=== PATIENT | female | born 1960 | race Caucasian/White ===

== ENCOUNTER 2024-05-07 17:45 | Inpatient (IN) | payer BC, SELFPAY ==
[2024-05-07] VITALS (9 sets, daily range): BP systolic 128–148; BP diastolic 78–89; PULSE 85–107; RESP 20–24; TEMP 36.3–36.9; O2SAT 86–95; BMI 32.6
--- NOTE | 2024-05-07 17:48 | PM.IMHP1 ---
Hospitalist- H&P: HPI History of Present Illness Date Seen: 05/07/24 Chief complaint: Direct Admit Narrative: ADMISSION HISTORY AND PHYSICAL - HOSPITALIST Chief Complaint: HPI: Patient is a 63-year-old female with a history of obesity and hyperlipidemia. She takes no daily medications. She has had symptoms of an upper respiratory infection for about 2 weeks. She had plan to cruise in the [facility] and did not want to miss the trip. So she went on the trip even though she felt quite ill. She felt worse upon return. She presented ambulatory this morning to the [place] ED. She was tachypneic, hypoxic, tachycardic and febrile. Initial workup revealed hypoxic respiratory failure with a patchy left lower lobe airspace opacity c/w CAP noted on two view chest x-ray. She was requiring 4L per NC oxygen to keep sats >90%. No history of smoking or chronic lung disease. She was started on broad-spectrum antibiotics including IV azithromycin and IV cefepime. She was given oral prednisone and multiple DuoNebs. With no bed availability in the [facility] was contacted for direct admission. ER COURSE: as above, IV antibiotics, labs, swabs, CXR. Nebs. CODE STATUS: FULL CODE EMERGENCY CONTACT PLAN: I've updated the PFSH, medications and allergies in the Expanse tabs. INVESTIGATIONS: LABS/MICRO/ECG/IMAGING CBC on 05/07/2024 at 10 30 Normal white blood cell count at 9.6 Hemoglobin 12.6 Platelets 297 BMP shows a mild hypokalemia, 3.5. Otherwise normal renal function the normal electrolytes. Glucose 112. Her lactate was negative Influenza and SARs CoV V2 negative RSV negative Last set of vitals in the [place] [facility] showed a blood pressure of 124/75, pulse 101, temperature 100.4?, respiratory rate 26, O2 sats 92% on 3 L, 83 kilos, BMI 30 through Chest x-ray done in the [place] [facility] Imaging Results - DX Chest AP or PA and Lateral 2 Views (05/07/2024 10:22 AM CDT) Impressions 05/07/2024 10:26 AM CDT Mid to lower pulmonary interstitial prominence with patchy left lower lobe airspace opacity consistent with pneumonia. Normal heart size. Spondylosis. REVIEW OF SYSTEMS: 12-point ROS completed with patient and negative unless otherwise stated in HPI or below. PHYSICAL EXAM: CONSTITUTIONAL: Conversive, good historian. A/O. Knows setting and context. GENERAL: Well-developed and above ideal body weight, in mild to moderate respiratory distress. VITAL SIGNS: see record. HEENT: Sclerae are anicteric. No petechiae. CARDIAC: rhythm is regular. There is no S3 or rub. No harsh murmurs. Extremities show trace edema with symmetrical pulses. PULM: coarse breath sounds; intermittent expiratory wheeze. hoarse voice, coughing between sentences and with any deep inspiration. On 1Liter NCO2. NEURO: Speech is fluent. A brief neurologic exam is negative. SKIN: No rashes, petechiae, concerning changes PSYCHIATRIC: Euthymic. ADMIT TO MEDSURG: FLOOR CARE DVT: Lovenox GI: PO intake Time spent: Today I spent 75 minutes seeing the patient, discussing the patient with ER staff, reviewing Expanse and EPIC notes/diagnostics, discussing the care plan with our care time that includes social work, PT/OT, pharmacy, RT, jail and documenting my impressions and plan in the medical record. MEDICAL NECESSITY FOR HOSPITALIZATION Anticipated midnights in the hospital: 2 Admitting diagnosis: hypoxic respiratory failure secondary to community-acquired pneumonia Risk of morbidity and mortality: Moderate Acuity is characterized as high and reflected in: Age greater than 60, oxygen dependent This patient will require hospital services as outlined in the assessment and plan in order to stabilize and be safely discharged to a lower level of care. Because of the risk and acuity as described above, this patient cannot be managed at a lower level of care. LENGTH OF STAY: 2 IP ? Anticipated LOS>2 midnights due to acuity of clinical presentation requiring inpatient level of care [facility] Medical History (Updated 05/10/24 @ 12:34 by Janell Isaac MD) Central obesity ?E65 - Localized adiposity (ICD-10) Hyperlipidemia ?E78.5 - Hyperlipidemia, unspecified (ICD-10) Deafness in left ear ?H91.92 - Unspecified hearing loss, left ear (ICD-10) Ulnar nerve entrapment at elbow ?G56.20 - Lesion of ulnar nerve, unspecified upper limb (ICD-10) History of acoustic neuroma ?Z86.018 - Personal history of other benign neoplasm (ICD-10) History of breast cancer ?Z85.3 - Personal history of malignant neoplasm of breast (ICD-10) Surgical History (Updated 05/07/24 @ 18:51 by Sue Varela MD) S/P ORIF (open reduction internal fixation) fracture ?Z98.890 - Other specified postprocedural states (ICD-10) ?Z87.81 - Personal history of (healed) traumatic fracture (ICD-10) History of bladder surgery ?Z98.890 - Other specified postprocedural states (ICD-10) Hx of mastectomy ?Z90.10 - Acquired absence of unspecified breast and nipple (ICD-10) History of cataract surgery ?Z98.49 - Cataract extraction status, unspecified eye (ICD-10) Social History What is your current living situation?: I presently have a place to live Problems where you live: no known problems Problems where you live details: na In the past 12 months, utilities in danger of being shut off: no In past 12 months, lack of transportation kept you from medical appts, meetings, work, or getting things needed for daily living: no In the past 12 mos, have been you worried that your food would run out before you had money to buy more?: never true In the past 12 mos, the food you bought just didn't last and you didn't have money to buy more?: never true Smoking Status: Never smoker Do you use any of these nicotine containing products: None Second hand tobacco smoke exposure: No How often do you have a drink containing alcohol: never How often do you have six or more drinks on one occasion: Never AUDIT-C Alcohol total score: 0 Non-prescribed substance use: denies use How often does anyone, including family, friends and others, physically hurt you: never How often does anyone, including family, friends and others, insult or talk down to you: never How often does anyone, including family, friends and others, threaten you with harm: never How often does anyone, including family, friends and others, scream or curse at you: never Meds Home Medications and Allergies Allergies Allergy/AdvReac Type Severity Reaction Status Date / Time No Known Drug Allergies Allergy Verified 05/07/24 18:52 Assessment and Plan Assessment and plan (1) Community acquired pneumonia: Problem comment: - per above, stable for d/c home on full course of Doxycycline 05/10/24 Status: Acute (2) Hypoxic respiratory failure: Problem comment: - admitted 05/07 with oxygen requirements between 1-3L to maintain sats > 90% - PNA on admission CXR - treated with Doxycycline, Rocephin to cover CAP; vibratory PEEP, incentive spirometry, nebs, HFNC for humidification, followed by RT - stable on RA 05/10/24 and appropriate for d/c home Status: Acute (3) Central obesity: Problem comment: 83Kg, BMI 32.5 Status: Chronic (4) Deafness in left ear: Status: Chronic (5) Hyperlipidemia: Problem comment: - not on medication for this, outpatient f/u Status: Chronic
[2024-05-07] MEDS: IPRAT-ALBUT 0.5-2.5 MG/3 ML NEB 1 NEB IH ×2 (19:17→23:28)
[2024-05-07] MEDS: cefTRIAXone 1 GM in 0.9 % SODIUM CHLORIDE Mini-bag 100 ML IVPB (19:17)
--- NOTE | 2024-05-07 19:54 | PC.NURSE ---
End of shift [id number] - Pt arrived from [place] ED via direct transfer at approximately 1650. Alert, oriented, cooperative and pleasant. Up with standby assistance. Noticeably SOB at rest, with exertion, and while speaking. Noted to desaturate to 88% without O2 support while speaking. Denies pain, chest pain, dizziness. Family at bedside. Tolerating O2 via nasal cannula at 1L to maintain saturation above 90% per MD order. Appears to be resting comfortably at end of shift with call light within reach.
--- NOTE | 2024-05-07 20:17 | RESP.RT ---
Patient initial SAT of 88% on room air. Placed on 1L NC to keep SATs at 90% and initiate Aerobika as patient states that she has been coughing up large amounts of mucus over the past 2 days. After deep breathing, Aerobika, and coughing the patient is SATing 92% on room air. PRN nebs for wheezing and continue working with Aerobika to clear mucus. Hold Aerobika if it is triggering increased wheezing and difficulty breathing. Consider pretreating with Neb prior to Aerobika treatments if wheezing persists and mucus clearance is still an issue.
[2024-05-08] VITALS (14 sets, daily range): BP systolic 119–144; BP diastolic 62–93; PULSE 85–124; RESP 20–32; TEMP 36.6–36.7; O2SAT 88–95
--- NOTE | 2024-05-08 04:52 | PC.NURSE ---
Pt alert and oriented. Pt had no complaints of pain. Pt is on 1-1.5 Liters of oxygen. Pt has SOB at exertion. Pt?s oxygen ranged from 88-92% on 1.5 Liters- Pt stayed most consistently at 90%. Pt up independently in room. Pt had no complaints of dizziness. Pt slept on and off during the night.?
--- NOTE | 2024-05-08 05:35 | PC.NURSE ---
While awake Pt has been using aerobika frequently. Pt stated that it feels like it is helping to loosen mucus in chest. While sleeping oxygen saturations consistently stay at 90% on 1.5 Liters oxygen.
[2024-05-08] MEDS: IPRAT-ALBUT 0.5-2.5 MG/3 ML NEB 1 NEB IH ×3 (06:17→18:25)
[2024-05-08 06:19] LABS: HCO3 VBG 25 mmol/L (21-28); PCO2 VBG 41 mmHG (40-50); PO2 VBG 38.7 mmHG (25-47); pH VBG 7.402 (7.32-7.43)
[2024-05-08 06:35] LABS: Hematocrit 31.2 % (33.0-51.0); Hemoglobin* 10.4 gm/dL (12.0-16.0); Immature Granulocytes Abs Auto 0.21 K/uL (0.00-0.30); Immature Granulocytes Pct Auto 2.2 %; Mean Corpuscular HGB Conc 33 gm/dL (32-36); Mean Corpuscular Hemoglobin 30 pg (26-34); Mean Corpuscular Volume 89 fL (80-100); Monocytes Percent Auto 15.7 % (0.0-11.0); Neutrophils Absolute Auto 6.58 K/uL (1.7-7.0); Neutrophils Percent Auto 70.1 % (42.0-72.0); Platelet Count* 299 K/uL (140-440); RDW Coefficient of Variation % 12.9 % (11.5-15.5); Red Blood Count 3.51 m/uL (4.00-5.20)
[2024-05-08 06:37] LABS: Slide Review Reflex No
[2024-05-08 06:40] LABS: Albumin* 3.3 g/dL (3.3-5.0); Chloride* 106 mmol/L (96-114)
[2024-05-08 06:41] LABS: Potassium* 3.7 mmol/L (3.6-5.1); Sodium* 138 mmol/L (135-149)
[2024-05-08 06:43] LABS: Alkaline Phosphatase* 85 U/L (40-150); Anion Gap 8 mEq/L (7-15); Aspartate Amino Transferase* 24 U/L (12-35); Bilirubin Total* 0.4 mg/dL (0.1-1.5); Blood Urea Nitrogen* 9 mg/dL (7-30); Carbon Dioxide* 24 mmol/L (20-32); Creatinine* 0.6 mg/dL (0.5-1.5); Est. Creatinine Clearance* 47.63; Estimated Glomerular Filt Rate 101 ml/min; Total Protein* 6.4 g/dL (6.0-8.3)
[2024-05-08 06:44] LABS: Alanine Aminotransferase* 20 U/L (4-35); Calcium* 8.5 mg/dL (8.4-10.6); Glucose* 105 mg/dL (60-115)
[2024-05-08 06:58] LABS: C Reactive Protein* 24.2 mg/dL (0.5-1.0)
--- NOTE | 2024-05-08 08:15 | RESP.RT ---
Patient sitting up in bed, on NC 2 Lpm, SaO2 88%, used Aerobika with patient 8/breathes, SaO2 increased to 91%. BBS with coarse breath sounds through out with inspiratory/expiratory wheezing noted, coarse breaths slightly more predominate in LLL. Patient has good dry cough with use of Aerobika, nonproductive, able to clear secretions when present. Would increase Albuterol nebulizer treatment between DuoNeb treatments for 24 hours.
[2024-05-08] MEDS: DOXYCYCLINE HYCLATE 100 MG PO ×2 (09:20→20:55)
[2024-05-08] MEDS: ALBUTEROL SULFATE 2.5 MG/3 ML VIAL.NEB NEB ×3 (09:20→15:23)
[2024-05-08] MEDS: predniSONE 20 MG TABLET 40 MG PO (09:20)
[2024-05-08] MEDS: SODIUM CHLORIDE 0.9 % (FLUSH) 10 ML SYRINGE 5 ML IVF ×2 (09:21→20:59)
--- NOTE | 2024-05-08 10:43 | PM.IMPN1 ---
Progress Note: A&P Assessment and plan (1) Hypoxic respiratory failure: Problem details: -requiring anywhere from 1-3 L to maintain sats greater than 90%. -doxycycline and Rocephin to cover community-acquired source -vibratory PEEP, incentive spirometry, nebs -titrate oxygen to room air with sats greater than 90% - 05/08 continue treatment as below. Continue supplemental oxygen, wean as able. Still requiring 1.5LPM this morning, will need to stay yet tonight for treatments. Status: Acute (2) Wheezing on expiration: Problem details: - May be due to bronchopneumonia. No h/o asthma. - Continue prednisone. Try intensive neb regimen today (discussed with RT). Status: Acute (3) Community acquired pneumonia: Problem details: -no history of chronic lung disease or smoking, patient should resolved these acute issues quickly - 05/08 Continue ceftriaxone and doxycycline, prednisone. Add Guaifenesin. Continue supplemental oxygen Status: Acute (4) Central obesity: Problem details: 83Kg Status: Chronic (5) Hyperlipidemia: Problem details: no meds Status: Chronic Time Spent With Patient Total time spent: Today I spent 50 minutes seeing the patient, reviewing Expanse and EPIC notes/diagnostics/labs, discussing the care plan with our care team that includes social work, PT/OT, pharmacy, RT, long term and documenting my impressions and plan in the medical record. Subjective Time Seen by Provider: 10:16 Date Seen: 05/08/24 Interval history: Gabriella tells me she feels 90% better. She denies h/o asthma. Denies tobacco use or exposure to tobacco. She works from home. Exam Narrative: Exam Narrative: General: No acute distress. Awake, alert, oriented x3. No pallor. No jaundice. On oxygen via nasal cannula. Was able to maintain sats of 92% while giving an extended history. Oropharynx: Clear. Mucous membranes moist. Cardiovascular: Regular rate and rhythm. No murmurs, gallops, or rubs. Respiratory: No respiratory distress. Expiratory wheezes noted bilaterally, mostly in the upper lung yang, coarse rhonchi in the left lower lung field. Extremities: No lower extremity edema. Const: Vital Signs, click to edit/add: Vital Signs - 24 hr 05/07/24 17:50 05/07/24 18:53 05/07/24 19:41 Temperature Pulse Rate 85 Pulse Rate [Pulse Oximeter] Respiratory Rate Blood Pressure [Le ft Arm] Pulse Oximetry 88 91 Oxygen Delivery Me thod Room Air Oxygen Flow Rate 05/07/24 19:41 05/07/24 19:42 05/07/24 19:49 Temperature 98.4 F Pulse Rate Pulse Rate [Pulse Oximeter] 107 H Respiratory Rate 20 24 24 Blood Pressure [Le ft Arm] 133/86 Pulse Oximetry 91 91 91 Oxygen Delivery Me thod Nasal Cannula Room Air Room Air Oxygen Flow Rate 1 05/07/24 20:05 05/07/24 22:30 05/07/24 23:32 Temperature 97.4 F L 98.0 F Pulse Rate 96 Pulse Rate [Pulse Oximeter] 98 99 Respiratory Rate 20 20 Blood Pressure [Le ft Arm] 148/89 H 128/78 Pulse Oximetry 95 90 Oxygen Delivery Me thod Nasal Cannula Nasal Cannula Oxygen Flow Rate 1 1.5 05/08/24 03:09 05/08/24 03:15 05/08/24 08:13 Temperature 97.8 F Pulse Rate Pulse Rate [Pulse Oximeter] 90 Respiratory Rate 24 Blood Pressure [Le ft Arm] 119/62 Pulse Oximetry 90 91 88 Oxygen Delivery Me thod Nasal Cannula Nasal Cannula Oxygen Flow Rate 1.5 2 05/08/24 09:11 05/08/24 09:11 Temperature 98.1 F Pulse Rate Pulse Rate [Pulse Oximeter] 91 Respiratory Rate 24 24 Blood Pressure [Le ft Arm] 141/93 H Pulse Oximetry 92 Oxygen Delivery Me thod Nasal Cannula Oxygen Flow Rate 1.5 Labs Labs: Laboratory Results - last 24 hr 05/08/24 06:13 WBC 9.40 RBC 3.51 L Hgb 10.4 L Hct 31.2 L MCV 89 MCH 30 MCHC 33 RDW Coeff of Polo 12.9 Plt Count 299 Neut % (Auto) 70.1 Lymph % (Auto) 12.0 L Saline % (Auto) 15.7 H Eos % (Auto) 0.0 Baso % (Auto) 0.0 Neut # (Auto) 6.58 Lymph # (Auto) 1.10 Saline # (Auto) 1.50 H Eos # (Auto) 0.00 Baso # (Auto) 0.00 Abs Immat Gran (auto) 0.21 Imm/Tot Granulo (auto) 2.2 VBG pH 7.402 VBG pCO2 41 VBG pO2 38.7 VBG HCO3 25 Sodium 138 Potassium 3.7 Chloride 106 Carbon Dioxide 24 Anion Gap 8 BUN 9 Creatinine 0.6 Estimated Creat Clear 47.63 Estimated GFR 101 Glucose 105 Calcium 8.5 Total Bilirubin 0.4 AST 24 ALT 20 Alkaline Phosphatase 85 C-Reactive Protein 24.2 H Total Protein 6.4 Albumin 3.3
[2024-05-08] MEDS: ACETAMINOPHEN 325 MG TABLET 650 MG PO ×2 (11:48→20:55)
--- NOTE | 2024-05-08 11:58 | RESP.RT ---
Patient had received Albuterol nebulizer treatment at 09:20. DuoNeb given at 11:00, with on demand nebulizer and medical air. Patient remained on NC 2 Lpm. SaO2 88%, H/R 101/minute. Patient sitting up in chair. BBS coarse, expiratory, inspiratory wheezing. Patient good nonproductive cough pre-treatment. At 11:20 second Albuterol nebulizer treatment given with same set up. VSS. Post treatment of both nebulizer treatments; BBS was less coarse, wheezing was slightly louder with more air movement noted, patient able to take larger breath. Aerobika done with good effort promoting good, productive cough of thick, yellow secretions, moderate amount. H/R increased to 120/minute, SaO2 moved around to 93-94%. Increased to 99% post use of Aerobika and cough. Third Albuterol nebulize on hold til H/R decreased back to normal.
[2024-05-08] MEDS: cefTRIAXone 1 GM in 0.9 % SODIUM CHLORIDE Mini-bag 100 ML IVPB (18:25)
--- NOTE | 2024-05-08 19:32 | PC.NURSE ---
Nursing Care Hours: [id number] Pt this shift alert and oriented, calm and cooperative. Headache post frequent nebs treated per eMAR. Denies SOB at rest or ambulating. spo2 hovering around 90-92% on 1.5L. Using Aerobika. Intermittent clearing of secretions. Independent in the room. IV occluded and new IV placed. ABX infused.
[2024-05-08] MEDS: guaiFENesin 600 MG TAB.ER.12H 1200 MG PO (20:55)
[2024-05-09] VITALS (14 sets, daily range): BP systolic 134–153; BP diastolic 77–93; PULSE 77–118; RESP 20–24; TEMP 36.3–36.8; O2SAT 91–97
[2024-05-09] MEDS: IPRAT-ALBUT 0.5-2.5 MG/3 ML NEB 1 NEB IH ×5 (01:12→23:25)
[2024-05-09 06:38] LABS: Basophils Percent Auto 0.1 % (0.0-3.0); Hematocrit 32.3 % (33.0-51.0); Hemoglobin* 10.4 gm/dL (12.0-16.0); Immature Granulocytes Pct Auto 4.6 %; Mean Corpuscular HGB Conc 32 gm/dL (32-36); Mean Corpuscular Hemoglobin 29 pg (26-34); Mean Corpuscular Volume 89 fL (80-100); Monocytes Percent Auto 11.4 % (0.0-11.0); Neutrophils Percent Auto 66.9 % (42.0-72.0); Platelet Count* 350 K/uL (140-440); RDW Coefficient of Variation % 13.2 % (11.5-15.5); Red Blood Count 3.64 m/uL (4.00-5.20); White Blood Count* 12.67 K/uL (4.50-11.00)
[2024-05-09 06:39] LABS: Slide Review Reflex No
[2024-05-09 06:48] LABS: Chloride* 107 mmol/L (96-114)
[2024-05-09 06:49] LABS: Sodium* 139 mmol/L (135-149)
[2024-05-09 06:51] LABS: Blood Urea Nitrogen* 15 mg/dL (7-30); Creatinine* 0.6 mg/dL (0.5-1.5); Est. Creatinine Clearance* 47.63; Estimated Glomerular Filt Rate 101 ml/min
[2024-05-09 06:52] LABS: Anion Gap 9 mEq/L (7-15); Calcium* 8.9 mg/dL (8.4-10.6); Carbon Dioxide* 23 mmol/L (20-32); Glucose* 88 mg/dL (60-115)
[2024-05-09 07:12] LABS: C Reactive Protein* 15.3 mg/dL (0.5-1.0)
--- NOTE | 2024-05-09 07:49 | PC.NURSE ---
Pt alert and oriented. Pt had no complaints of pain. Pt up independently in room. Pt had no complaints of dizziness. Pt slept on and off during the night. Pt had no complaints of SOB. Pt was on 1.5 Liters oxygen and maintained saturations 90-94% at 0100 Pt titrated down to 1 Liter O2 and maintained saturations 91-95% while sleeping. ?
[2024-05-09] MEDS: ACETAMINOPHEN 325 MG TABLET 650 MG PO ×2 (08:26→19:20)
[2024-05-09] MEDS: predniSONE 20 MG TABLET 40 MG PO (08:27)
[2024-05-09] MEDS: guaiFENesin 600 MG TAB.ER.12H 1200 MG PO (08:27)
[2024-05-09] MEDS: DOXYCYCLINE HYCLATE 100 MG PO ×2 (08:28→19:20)
[2024-05-09] MEDS: ALBUTEROL SULFATE 2.5 MG/3 ML VIAL.NEB NEB (08:28)
[2024-05-09] MEDS: SODIUM CHLORIDE 0.9 % (FLUSH) 10 ML SYRINGE 5 ML IVF ×2 (08:38→21:22)
--- NOTE | 2024-05-09 09:41 | PM.IMPN1 ---
Progress Note: A&P Assessment and plan (1) Hypoxic respiratory failure: Problem details: -05/07 requiring anywhere from 1-3 L to maintain sats greater than 90%. Doxycycline and Rocephin to cover community-acquired source. Vibratory PEEP, incentive spirometry, nebs. Titrate oxygen to room air with sats greater than 90% - 05/08 continue treatment as below. Continue supplemental oxygen, wean as able. Still requiring 1.5LPM this morning, will need to stay yet tonight for treatments. - 05/09 I suspect patient is experiencing mucous plugging from bronchopulmonary pneumonia. Trial of low oxygen supplemented HFNC to provide humidification. Status: Acute (2) Wheezing on expiration: Problem details: - May be due to bronchopneumonia. No h/o asthma. - 05/08 Continue prednisone. Try intensive neb regimen today (discussed with RT). - 05/09 Improving. Continue nebs. Continue prednisone, day 2/5. Status: Acute (3) Community acquired pneumonia: Problem details: -no history of chronic lung disease or smoking, patient should resolved these acute issues quickly - 05/08 Continue ceftriaxone and doxycycline, prednisone. Add Guaifenesin. Continue supplemental oxygen - 05/09 Continue ceftriaxone (day 3) and doxycycline (day 2). Stop Guaifenesin, I think this is causing too many secretions. Continue supplemental oxygen - trial of 24h of HFNC. Status: Acute (4) Central obesity: Problem details: 83Kg, BMI 32.5 Status: Chronic (5) Hyperlipidemia: Problem details: no meds Status: Chronic Subjective Time Seen by Provider: 09:03 Date Seen: 05/09/24 Interval history: Gabriella was feeling like she went backward this morning when she first woke up: more congested and wheezy. She has had to nebs since then and is starting to feel better again. She had some success with the 3 nebs in a row yesterday. She was able to bring up some phlegm and the wheezing subsided. Exam Narrative: Exam Narrative: General: No acute distress. Awake, alert, oriented x3. No pallor. No jaundice. On oxygen via nasal cannula. Oropharynx: Clear. Mucous membranes moist. Cardiovascular: Regular rate and rhythm. No murmurs, gallops, or rubs. Respiratory: No respiratory distress. Good air movement. Rhonchi in the right mid lung field, otherwise no wheezes or crackles. Extremities: No lower extremity edema. Const: Vital Signs, click to edit/add: Vital Signs - 24 hr 05/08/24 10:56 05/08/24 11:00 05/08/24 11:00 Temperature Pulse Rate Pulse Rate [Pulse Oximeter] 100 Respiratory Rate 20 20 Blood Pressure [Le ft Arm] 144/83 H Pulse Oximetry 92 92 88 Oxygen Delivery Me thod Nasal Cannula Nasal Cannula Oxygen Flow Rate 2 2 Fraction of Inspir ed Oxygen 05/08/24 11:32 05/08/24 15:00 05/08/24 15:00 Temperature 97.9 F Pulse Rate Pulse Rate [Pulse Oximeter] 120 H 112 H 112 H Respiratory Rate 32 H 32 H 28 H Blood Pressure [Le ft Arm] 139/77 Pulse Oximetry 90 91 Oxygen Delivery Me thod Room Air Nasal Cannula Oxygen Flow Rate 1.5 Fraction of Inspir ed Oxygen 05/08/24 15:00 05/08/24 19:38 05/08/24 19:46 Temperature 98.1 F Pulse Rate 124 H Pulse Rate [Pulse Oximeter] 98 Respiratory Rate 26 H Blood Pressure [Le ft Arm] 136/72 Pulse Oximetry 90 90 Oxygen Delivery Me thod Nasal Cannula Oxygen Flow Rate 1.5 Fraction of Inspir ed Oxygen 05/08/24 22:00 05/08/24 23:00 05/08/24 23:40 Temperature Pulse Rate 87 Pulse Rate [Pulse Oximeter] 87 85 Respiratory Rate 26 H 22 Blood Pressure [Le ft Arm] Pulse Oximetry 95 Oxygen Delivery Me thod Nasal Cannula Oxygen Flow Rate 1.5 Fraction of Inspir ed Oxygen 05/09/24 01:15 05/09/24 03:00 05/09/24 06:16 Temperature 97.5 F L 98.2 F Pulse Rate Pulse Rate [Pulse Oximeter] 82 77 Respiratory Rate 22 20 Blood Pressure [Le ft Arm] 141/93 H 136/84 Pulse Oximetry 91 92 92 Oxygen Delivery Me thod Nasal Cannula Nasal Cannula Oxygen Flow Rate 1.0 1 Fraction of Inspir ed Oxygen 05/09/24 07:00 05/09/24 08:34 05/09/24 09:31 Temperature Pulse Rate 89 Pulse Rate [Pulse Oximeter] Respiratory Rate 24 Blood Pressure [Le ft Arm] Pulse Oximetry Oxygen Delivery Me thod Oxygen Flow Rate 12 Fraction of Inspir ed Oxygen 33 05/09/24 09:31 Temperature Pulse Rate Pulse Rate [Pulse Oximeter] Respiratory Rate 20 Blood Pressure [Le ft Arm] Pulse Oximetry 92 Oxygen Delivery Me thod High Flow Nasal Ca nnula Oxygen Flow Rate 12 Fraction of Inspir ed Oxygen 33 Labs Labs: Laboratory Results - last 24 hr 05/09/24 06:09 WBC 12.67 H RBC 3.64 L Hgb 10.4 L Hct 32.3 L MCV 89 MCH 29 MCHC 32 RDW Coeff of Polo 13.2 Plt Count 350 Neut % (Auto) 66.9 Lymph % (Auto) 17.0 L [place] % (Auto) 11.4 H Eos % (Auto) 0.0 Baso % (Auto) 0.1 Neut # (Auto) 8.50 H Lymph # (Auto) 2.20 [place] # (Auto) 1.40 H Eos # (Auto) 0.00 Baso # (Auto) 0.00 Abs Immat Gran (auto) 0.60 H Imm/Tot Granulo (auto) 4.6 Sodium 139 Potassium 4.0 Chloride 107 Carbon Dioxide 23 Anion Gap 9 BUN 15 Creatinine 0.6 Estimated Creat Clear 47.63 Estimated GFR 101 Glucose 88 Calcium 8.9 C-Reactive Protein 15.3 H
[2024-05-09] MEDS: cefTRIAXone 1 GM in 0.9 % SODIUM CHLORIDE Mini-bag 100 ML IVPB (18:37)
--- NOTE | 2024-05-09 23:47 | PC.NURSE ---
Shift Note: Pt friendly and cooperative. Independent in her room. HFNC 20L/30% FiO2. VS WNL although patient's HR has been intermittently tachycardic as high as 118 BPM. Pt is intermittently coughing and expectorating small amounts of sputum. C/o of moderate 5/10 low back pain and 5/10 intercostal pain pt states is from coughing. Pt given PRN Tylenol and an icepack.
[2024-05-10 01:00] VITALS: O2SAT 92
[2024-05-10 03:00] VITALS: BP 137/90; PULSE 77; RESP 18; TEMP 36.5; O2SAT 93
[2024-05-10 05:00] VITALS: O2SAT 92
[2024-05-10] MEDS: IPRAT-ALBUT 0.5-2.5 MG/3 ML NEB 1 NEB IH ×2 (06:10→11:56)
--- NOTE | 2024-05-10 06:20 | PC.NURSE ---
End of shift report [id number]: Alert and oriented x 4. Pain to lateral ribs reported from coughing and low back pain that is chronic in nature, managed with current regimen. Patient prefers ice to ribs and back. Lung sounds with expiratory wheezing and coarse, moist cough. Patient reports that she is able to cough up scant amount of sputum but feels like she doesn't have enough power behind the cough to get all of it up. Hi-flow nasal cannula on throughout the night, patient tolerated well and was able to maintain O2 sats>91% throughout the night. O2 sats decreased to 87% with oxygen off and ambulation to bathroom, recovered to 90% within 1 minute of rest and oxygen.
[2024-05-10 07:00] VITALS: O2SAT 95
[2024-05-10] MEDS: DOXYCYCLINE HYCLATE 100 MG PO (09:37)
[2024-05-10] MEDS: SODIUM CHLORIDE 0.9 % (FLUSH) 10 ML SYRINGE 5 ML IVF (09:50)
[2024-05-10 10:32] VITALS: BP 152/96; PULSE 110; RESP 20; TEMP 36.8; O2SAT 93
--- NOTE | 2024-05-10 12:26 | P.DS_ITS ---
DS: Providers Provider Date Seen: 05/10/24 Date of admission: 05/07/24 17:50 Primary care physician: Travis Dutton MD Admitting Clinician: Sue Varela MD Consults: 05/07/24 17:51 Consult to Respiratory Therapy [CONS] Routine Comment: Reason(s) for RT Consult:: Consult Attending Physician on discharge: Janell Isaac MD Date of Discharge: 05/10/24 DS: Diagnosis Discharge Diagnosis (1) Hypoxic respiratory failure: Status: Acute Problem details: - admitted 05/07 with oxygen requirements between 1-3L to maintain sats > 90% - PNA on admission CXR - treated with Doxycycline, Rocephin to cover CAP; vibratory PEEP, incentive spirometry, nebs, HFNC for humidification, followed by RT - stable on RA 05/10/24 and appropriate for d/c home (2) Wheezing on expiration: Status: Acute Problem details: - May be due to bronchopneumonia. No h/o asthma or COPD - treated with nebs and 2 days of Prednisone during stay (3) Community acquired pneumonia: Status: Acute Problem details: - per above, stable for d/c home on full course of Doxycycline 05/10/24 (4) Hyperlipidemia: Status: Chronic Problem details: - not on medication for this, outpatient f/u (5) Elevated blood pressure reading: Status: Acute Problem details: - BP 140s-150s/80-90s during stay - asymptomatic, no history of essential HTN - likely iatrogenic, outpatient f/u and management DS: Summary Hospital Course Hospital Course: Gabriella was admitted to the hospital on 05/08/2024 for acute hypoxic respiratory failure in the setting of community-acquired pneumonia. She was treated with supplemental oxygen, nebs, antibiotics, and 2 days of prednisone. No history of asthma or COPD, wheezing noted on admission resolved during stay. She had some difficulty coughing up secretions, improved with Aerobika. Mild chest discomfort with coughing, treated with APAP/Codeine. Blood pressure elevated, asymptomatic. Presumed iatrogenic, will f/u with PCP to recheck/manage. She titrated to room air on 05/10/2024 and was medically appropriate for discharge home with family. Status at Discharge Functional status at discharge: independent ambulation Overall status at discharge: patient is progressing back to baseline Time Spent with Patient Time attestation: Total time spent providing and/or coordinating discharge services: Time spent: Greater than 30 minutes Specific discharge activities: Medication reconciliation, patient education, history review Exam Narrative: Exam Narrative: GEN: Alert, speaking in full sentences without dyspnea HEENT: EOMIs bilaterally, no scleral icterus CV: RRR (HR 80s during my exam), no concerning murmurs R: LCTA bilaterally without concerning wheezing, air movement adequate Skin: No concerning skin lesions or rashes on exposed skin Neuro: Nonfocal Psych: Appropriate Const: Vital Signs, click to edit/add: Vital Signs - 24 hr 05/09/24 13:01 05/09/24 13:25 05/09/24 13:35 Temperature Pulse Rate [Pulse Oximeter] Respiratory Rate Blood Pressure [Le ft Arm] Pulse Oximetry 94 Oxygen Delivery Me thod Oxygen Flow Rate 20 20 Fraction of Inspir ed Oxygen 30 30 05/09/24 15:00 05/09/24 15:00 05/09/24 15:00 Temperature 98.3 F Pulse Rate [Pulse Oximeter] 118 H 118 H Respiratory Rate 20 20 Blood Pressure [Le ft Arm] 145/85 H Pulse Oximetry 94 Oxygen Delivery Me thod High Flow Nasal Ca nnula Oxygen Flow Rate 20 Fraction of Inspir ed Oxygen 30 30 05/09/24 17:00 05/09/24 19:00 05/09/24 19:00 Temperature 97.3 F L Pulse Rate [Pulse Oximeter] 97 Respiratory Rate 20 Blood Pressure [Le ft Arm] 135/77 Pulse Oximetry 96 Oxygen Delivery Me thod High Flow Nasal Ca nnula Oxygen Flow Rate 20 Fraction of Inspir ed Oxygen 30 30 30 05/09/24 21:00 05/09/24 23:00 05/09/24 23:00 Temperature Pulse Rate [Pulse Oximeter] 80 Respiratory Rate 22 Blood Pressure [Le ft Arm] Pulse Oximetry Oxygen Delivery Me thod Oxygen Flow Rate Fraction of Inspir ed Oxygen 30 30 05/09/24 23:00 05/10/24 01:00 05/10/24 03:00 Temperature 98.2 F Pulse Rate [Pulse Oximeter] 80 Respiratory Rate 22 Blood Pressure [Le ft Arm] 134/83 Pulse Oximetry 95 Oxygen Delivery Me thod High Flow Nasal Ca nnula Oxygen Flow Rate 20 Fraction of Inspir ed Oxygen 30 30 30 05/10/24 03:00 05/10/24 05:00 05/10/24 07:00 Temperature 97.7 F Pulse Rate [Pulse Oximeter] 77 Respiratory Rate 18 Blood Pressure [Le ft Arm] 137/90 H Pulse Oximetry 93 Oxygen Delivery Me thod High Flow Nasal Ca nnula Oxygen Flow Rate 20 Fraction of Inspir ed Oxygen 30 30 30 05/10/24 10:32 Temperature 98.3 F Pulse Rate [Pulse Oximeter] 110 H Respiratory Rate 20 Blood Pressure [Le ft Arm] 152/96 H Pulse Oximetry 93 Oxygen Delivery Me thod Room Air Oxygen Flow Rate Fraction of Inspir ed Oxygen Discharge Plan Discharge Disposition: Home, Self-Care Date of Admission: 05/07/24 17:50 Attending Provider on Discharge: Janell Isaac Primary Care Provider: Travis Dutton Condition: Improved Anticipated Discharge Date/Time: 05/10/24 11:59 Discharge Medications: New doxycycline hyclate 100 mg Tablet 100 mg PO BID 5 Days Qty: 10 0RF acetaminophen-codeine 300-30 mg tablet 1 tab PO Q6H PRN (Reason: pain) Qty: 10 0RF albuterol sulfate 90 mcg/actuation HFA aerosol inhaler 2 puff inhalation Q6H PRN (Reason: shortness of breath or wheezing) Qty: 8.5 0RF Discharge Orders: Discharge Order (Routine); Ordered 05/10/24 Ordered By: Janell Isaac Additional Instructions: New medications sent to [facility]: Albuterol inhaler as needed for cough or shortness of breath (this is the same medication as the nebs you used during hospital stay). 5 more days of antibiotics. Tylenol #3 for rib pain/coughing. Check in with Dr. Dutton or partners for a hospital followup and blood pressure check. Activity Level: No strenuous activity Discharge Diet: Regular Follow Up Appointments: Travis Dutton MD [Primary Care Provider] - (appt with Dr. Dutton or a partner in 7-10 days for hospital d/c followup to discuss recent PNA and check BP. Try clinic phone # [phone]) Forms: [employer] Info Instructions
[2024-05-10 14:04] VITALS: BP 168/104; PULSE 88; RESP 20; O2SAT 91
--- NOTE | 2024-05-10 17:57 | PC.NURSE ---
Discharge - Pt alert, oriented, cooperative. Up independently in room, tolerating RA and maintaining saturation at 88% and above per MD order. Pt reported pain in ribs from coughing. Given medication per MAR with pt reporting improved comfort. IV removed with catheter intact. D/C education provided to patient regarding medication, follow up, and symptoms worsening. Pt verbalized understanding, signed d/c documents. D/c to home via wheelchair with significant other at approximately 1743.
== END 2024-05-10 17:43 | disposition home or self-care (01) | DRG 133 ==
PROVIDERS: Family Medicine; Admitting Provider Family Medicine; PCP Student in an Organized Health Care Education/Training Program; Visit Provider Family Medicine
DX: J96.01 Acute respiratory failure with hypoxia (principal); J18.9 Pneumonia, unspecified organism; E66.89 Other obesity not elsewhere classified; Z68.32 Body mass index [BMI] 32.0-32.9, adult; J18.0 Bronchopneumonia, unspecified organism; R03.0 Elevated blood-pressure reading, without diagnosis of hypertension; H91.92 Unspecified hearing loss, left ear; E78.5 Hyperlipidemia, unspecified; Z87.891 Personal history of nicotine dependence; Z85.3 Personal history of malignant neoplasm of breast
CPT/HCPCS: 36415; 71046; 80048; 80053; 82803; 85025; 86140; 93005; 94640; 94664; 94761; A9270; J0696; J7512